=== PATIENT | male | born 1985 | race Caucasian/White ===

== ENCOUNTER 2022-04-04 11:41 | Emergency (ER) | payer OTHER ==
[~2022-04-04] VITALS: Ht 167.6 cm; Wt 102.1 kg
[2022-04-04 11:49] VITALS: BP 148/87
--- NOTE | 2022-04-04 11:53 | NUR ---
PT AMBULATED TO BED 12
--- NOTE | 2022-04-04 12:18 | NUR ---
PT TAKEN TO XRAY VIA W/C.
--- NOTE | 2022-04-04 12:28 | NUR ---
Pt brought back from Xray via w/c.
[2022-04-04 12:47] LABS: BASOPHILS # (AUTO) 0.1 K/uL (0.00-0.22); EOSINOPHILS # (AUTO) 0.1 K/uL (0-0.4); EOSINOPHILS % (AUTO) 1.9 % (0.0-4.0); HEMOGLOBIN 15.1 g/dL (12.0-18.0); LYMPHOCYTES # (AUTO) 1.5 K/uL (2.0-11.5); MEAN CORPUSCULAR HEMOGLOBIN 27 pg (27-31); MEAN CORPUSCULAR HGB CONC 34 g/dL (33-37); MEAN CORPUSCULAR VOLUME 78.9 fL (80-94); MONOCYTES # (AUTO) 0.7 K/uL (0.8-1.0); MONOCYTES % (AUTO) 8.7 % (1.7-9.3); NEUTROPHILS # (AUTO) 5.4 K/uL (1.8-7.7); NEUTROPHILS % (AUTO) 69.4 % (42.2-75.2); PLATELET COUNT (AUTO) 218 K/uL (140-450); RED BLOOD CELL COUNT(AUTO) 5.58 MIL/uL (4.20-6.10); RED CELL DISTRIBUTION WIDTH 13.6 % (11.6-13.7); WHITE BLOOD COUNT (AUTO) 7.8 K/uL (4.8-10.8)
[2022-04-04 13:00] LABS: ALBUMIN 3.4 g/dL (3.4-5.0); ANION GAP 9.4 (8-16); CARBON DIOXIDE 32.9 mmol/L (21-32); CREATININE 1.1 mg/dL (0.6-1.3); POTASSIUM 4.3 mmol/L (3.5-5.1); TOTAL BILIRUBIN 0.4 mg/dL (0.0-1.0)
[2022-04-04] MEDS ORDERED: MIRABULK PO (13:35)
[2022-04-04 14:19] LABS: APPEARANCE,URINE CLEAR (CLEAR); BILIRUBIN,URINE NEGATIVE (NEGATIVE); BLOOD, URINE NEGATIVE (NEGATIVE); COLOR,URINE YELLOW (YELLOW); LEUKOCYTE ESTERASE ,URINE NEGATIVE (NEGATIVE); NITRITE, URINE NEGATIVE (NEGATIVE); UGLUCOSE NEGATIVE (NEGATIVE)
[2022-04-04] MEDS ORDERED: KETAMINE 500 MG/5 ML VIAL ONE (15:22)
== END 2022-04-04 13:50 | disposition home or self-care (01) ==
LOC: MED 11:41
DX: K59.00 Constipation, unspecified (principal); R12 Heartburn; Z79.899 Other long term (current) drug therapy
CPT/HCPCS: 36415; 74018; 80053; 81003; 83690; 85025; 99284